=== PATIENT | female | born 1935 | race Caucasian/White ===

== ENCOUNTER 2017-06-21 09:58 | Inpatient (IN) ==
--- NOTE | 2017-06-21 10:17 | PROVIDER DOCUMENTATION ---
HPI-General Adult - General Stated Complaint: RECTAL BLEEDING Time Seen by Provider: 06/21/17 10:00 Source: EMS Allergies/Adverse Reactions: Patient Allergies Allergy/AdvReac Type Severity Reaction Status Date / Time No Known Allergies Allergy Verified 06/21/17 10:24 - History of Present Illness -Gen Adult Nature of Presenting Problems: 81 y/o WF with a PMHx of HTN, CVA, Dementia currently at [facility], depression, and hemorrhoids, presenting today for generalized weakness, decreased appetitie and bleeding hemorrhoids. Was just seen by the PCP for bleeding hemorrhoids. Patient is a poor historian, and just states "I am weak all over." She does not contribute anything else to the history, which is obtained per EMS. Denies recent falls or AMS. She was sent here because she refused to eat breakfast this morning. She is apparently ambulatory with assistance, and is on the behavioral shaw at the facility for depression and dementia. She denies nausea, vomiting, or changes in her BM. Review of Systems - Adult - REVIEW OF SYSTEMS - ADULT Constitutional: reports: see HPIyokasta. denies: chills, fever Eyes: reports: no symptoms reported. denies: decreased vision, blurred vision, double vision, eye pain Ears, Nose, Mouth & Throat: reports: no symptoms reported. denies: ear pain, nose pain, throat pain Cardiovascular: reports: no symptoms reported. denies: chest pain, irregular heart rate, palpitations Respiratory: reports: no symptoms reported. denies: cough, shortness of breath , wheezing Gastrointestinal: reports: see HPI, poor appetite, rectal bleeding. denies: abdominal pain, diarrhea, nausea, vomiting Genitourinary: reports: no symptoms reported. denies: dysuria, discharge, frequency, incontinence Musculoskeletal: reports: no symptoms reported. denies: bone pain, back pain, muscle aches Integumentary: reports: no symptoms reported. denies: rash Neurological: reports: no symptoms reported. denies: dizziness/vertigo, headache/migraines Psychiatric: reports: no symptoms reported Endocrine: reports: no symptoms reported Hematologic/Lymphatic: reports: no symptoms reported Allergic/Immunologic: reports: no symptoms reported All Other Systems: Reviewed and Negative Past History - Adult - PAST MEDICAL HISTORY-ADULT Review of Records: reports: Old Records Reviewed, Nursing Assessment Review, Medications Reviewed Major Childhood Illnesses: reports: denies history Cardiovascular: reports: HTN Respiratory: reports: denies history Gastrointestinal: reports: denies history Obstetrical/Gynecological: reports: denies history Genitourinary: reports: denies history Musculoskeletal: reports: denies history Neurological: reports: CVA (no residual) Psychiatric: reports: anxiety Endocrine/Immune: reports: denies history Other Conditions: reports: denies history - PRIOR SURGERIES/PROCEDURES Surgical/Procedure History: reports: reviewed, not pertinent - IMMUNIZATION STATUS Childhood Immunizations: See Nurse Assessment Flu Vaccine: See Nurse Assessment - FAMILY HISTORY Family History: reviewed, not pertinent - SOCIAL HISTORY Smoking: denies Substance Use: none/never Alcohol Use Frequency: never Living Situation: family Physical Exam-General - PHYSICAL EXAM-ADULT Initial Vital Signs Reviewed: Yes - CONSTITUTIONAL General Appearance: appears well, alert, thin - EYES Eyes: PERRL/EOMI, pink conjunctivae - HEAD, EARS, NOSE, MOUTH & THROAT HENMT: normocephalic/atraumatic, moist mucous membranes, normal ENT inspection - NECK Neck: non-tender, full range of motion, supple, normal inspection - RESPIRATORY Respiratory: chest non-tender, lungs clear, normal breath sounds, no pleuratic chest pain, no respiratory distress, no accessory muscle use. negative: respiratory distress, decreased breath sounds, accessory muscle use, crackles, rales, rhonchi, wheezing - CARDIOVASCULAR Cardiovascular: normal peripheral pulses, regular rate, rhythm, no edema, no gallop, diastolic murmur - GASTROINTESTINAL (ABDOMEN) Abdominal Exam: normal bowel sounds, non tender, soft - LYMPHATIC Lymphatic: no adenopathy - MUSCULOSKELETAL Back Exam: normal inspection Extremity: normal range of motion, normal inspection Peripheral Pulses: radial (R): 2+, radial (L): 2+, dorsalis-pedis (R): 2+, dorsalis-pedis (L): 2+ - SKIN Integumentary: normal color, normal turgor, warm/dry - NEUROLOGIC Neurologic: grossly normal, no motor/sensory deficits - PSYCHIATRIC Psych/Mental Status: normal mood/affect, normal thought content, normal thought process Progress - PLAN OF CARE/RESULTS Progress/Plan/Lab Results: Vital Signs - 8 hr 06/21/17 10:11 Temperature 98.0 F Pulse Rate 74 Respiratory Rate 14 Blood Pressure 135/71 O2 Sat by Pulse Oximetry 98 Orders Category Date Time Status Nursing- Obtain EKG once Care 06/21/17 10:11 Ordered Saline Loc NOW Care 06/21/17 10:11 Ordered CBC WITH ELECTRONIC DIFF [HEME] Stat Lab 06/21/17 10:11 Uncollected CK PROFILE [SP CHEM] Stat Lab 06/21/17 10:11 Uncollected COMPREHENSIVE METABOLIC PANEL [CHEM] Stat Lab 06/21/17 10:11 Uncollected TROPONIN T Stat Lab 06/21/17 10:11 Uncollected UA [UA NIMS W/REFLEX CULT] [URINALYSIS] Stat Lab 06/21/17 10:11 Uncollected EKG [EKG] Stat Ther 06/21/17 10:11 Or[address] Discuss[address] patient with Dr. Yates, agrees with treatment, disposition and plan. Laboratory Tests 06/21/17 06/21/17 06/21/17 10:20 10:20 10:20 WBC 11.78 H RBC 3.69 L Hgb 9.3 L Hct 29.6 L MCV 80.2 L MCH 25.2 L MCHC 31.4 L RDW Std Deviation 13.5 Plt Count 362 MPV 8.5 Immature Gran % (Auto) 0.3 Neut % (Auto) 80.3 H Lymph % (Auto) 8.8 L Falls % (Auto) 9.8 H Eos % (Auto) 0.5 Baso % (Auto) 0.3 Immature Gran # (Auto) 0.03 Neut # (Auto) 9.47 H Lymph # (Auto) 1.04 L Falls # (Auto) 1.15 H Eos # (Auto) 0.06 Baso # (Auto) 0.03 Sodium 137 Potassium 4.0 Chloride 96 L Carbon Dioxide 28 Anion Gap 13 BUN 35 H Creatinine 1.0 H BUN/Creatinine Ratio 35 Glucose 130 H Calculated Osmolality 284 Calcium 8.9 Iron TIBC % Saturation Unsat Iron Binding Ferritin Total Bilirubin 0.14 L AST 12 ALT < 5 L Alkaline Phosphatase 104 Creatine Kinase 52 Troponin T < 0.010 Total Protein 6.5 Albumin 3.3 L Globulin 3.2 Albumin/Globulin Ratio 1.0 Vitamin B12 Folate Urine Source Urine Color Urine Turbidity Urine pH Ur Specific [place] Urine Protein Ur Glucose (Stick) Ur Ketones (Stick) Urine Blood Urine Nitrite Urine Bilirubin Urobilinogen Dipstick Urine Leukocytes Urine WBC (Auto) Urine RBC (Auto) U Epithel Cells (Auto) Urine Bacteria (Auto) 06/21/17 06/21/17 06/21/17 10:20 10:20 10:20 WBC RBC Hgb Hct MCV MCH MCHC RDW Std Deviation Plt Count MPV Immature Gran % (Auto) Neut % (Auto) Lymph % (Auto) Falls % (Auto) Eos % (Auto) Baso % (Auto) Immature Gran # (Auto) Neut # (Auto) Lymph # (Auto) Falls # (Auto) Eos # (Auto) Baso # (Auto) Sodium Potassium Chloride Carbon Dioxide Anion Gap BUN Creatinine BUN/Creatinine Ratio Glucose Calculated Osmolality Calcium Iron 16 L TIBC 223 % Saturation 7 Unsat Iron Binding 207 Ferritin 90 Total Bilirubin AST ALT Alkaline Phosphatase Creatine Kinase Troponin T Total Protein Albumin Globulin Albumin/Globulin Ratio Vitamin B12 1090 H Folate 5.3 L Urine Source Urine Color Urine Turbidity Urine pH Ur Specific [place] Urine Protein Ur Glucose (Stick) Ur Ketones (Stick) Urine Blood Urine Nitrite Urine Bilirubin Urobilinogen Dipstick Urine Leukocytes Urine WBC (Auto) Urine RBC (Auto) U Epithel Cells (Auto) Urine Bacteria (Auto) 06/21/17 10:29 WBC RBC Hgb Hct MCV MCH MCHC RDW Std Deviation Plt Count MPV Immature Gran % (Auto) Neut % (Auto) Lymph % (Auto) Falls % (Auto) Eos % (Auto) Baso % (Auto) Immature Gran # (Auto) Neut # (Auto) Lymph # (Auto) Falls # (Auto) Eos # (Auto) Baso # (Auto) Sodium Potassium Chloride Carbon Dioxide Anion Gap BUN Creatinine BUN/Creatinine Ratio Glucose Calculated Osmolality Calcium Iron TIBC % Saturation Unsat Iron Binding Ferritin Total Bilirubin AST ALT Alkaline Phosphatase Creatine Kinase Troponin T Total Protein Albumin Globulin Albumin/Globulin Ratio Vitamin B12 Folate Urine Source CATH Urine Color YELLOW Urine Turbidity HAZY Urine pH 6.5 Ur Specific [place] 1.024 Urine Protein 50 A Ur Glucose (Stick) NEGATIVE Ur Ketones (Stick) TRACE A Urine Blood NEGATIVE Urine Nitrite POSITIVE A Urine Bilirubin NEGATIVE Urobilinogen Dipstick NORMAL Urine Leukocytes MODERATE A Urine WBC (Auto) 10-20 A Urine RBC (Auto) <10 U Epithel Cells (Auto) <10 Urine Bacteria (Auto) 4+ Result Diagrams: 06/21/17 10:20 06/21/17 10:20 - CONSULTS/PCP/HOSPITALIST Notification #1 *Consult/PCP/Hospitalist*: Hospitalist, Dr. Summers Time Discussed: 11:42 Reason/Comments: UTI, weakness Consult Disposition: Admit Departure - Departure Date of Disposition Decision: 06/21/17 Time of Disposition Decision: 11:40 DIAGNOSIS: Weakness UTI (urinary tract infection) Qualifiers: Urinary tract infection type: acute cystitis Hematuria presence: without hematuria Qualified Code(s): N30.00 - Acute cystitis without hematuria Anemia Qualifiers: Anemia type: unspecified type Qualified Code(s): D64.9 - Anemia, unspecified Disposition: ADMITTED INPATIENT 09 Certified Medical Emergency: Emergent Condition: Stable - Critical Care Note This patient required my direct & personal management of CC.: No Attestation - Physician/ CANDI Attestation Patient care was provided by Advanced Practice Provider:: Yes Advanced Practice Provider:: Araceli Johnson Advanced Practice Provider documentation review:: The Mid-level provider documentation, treatment plan and medical decision making was reviewed by the physician who agrees with all treatment and medical decision making by the MLP. The physician spent face to face time with patient:: No Advanced Practice Provider documentation review:: Supervising physician onsite and consulted in the evaluation and care of this patient. The physician did not have a face to face encounter with the patient.
[2017-06-21 10:26] LABS: MANUAL DIFF NEEDED? NO
[2017-06-21 10:29] LABS: BASO% 0.3 % (0.0-0.8); EOS# 0.06 X1000 (0.0-0.7); EOS% 0.5 % (0.0-10.0); HEMATOCRIT 29.6 % (37.0-47.0); HEMOGLOBIN 9.3 g/dL (12.0-16.0); IMM GRAN# 0.03 X1000 (0.0-0.04); IMM GRAN% 0.3 % (0.0-0.5); LYMPH# 1.04 X1000 (1.2-3.4); LYMPH% 8.8 % (20.5-51.1); MCH 25.2 PG (27-31); MCHC 31.4 g/dL (33-37); MCV 80.2 FL (81-99); MONO# 1.15 X1000 (0.11-0.59); MONO% 9.8 % (1.7-9.3); MPV 8.5 FL (7.4-10.4); NEUT% 80.3 % (42.2-75.2); PLT 362 X1000 (130-400); RBC 3.69 XMIL (4.2-5.4)
[2017-06-21 10:52] LABS: AGAP 13; ALBUMIN 3.3 g/dL (3.5-5.0); ALKALINE PHOSPHATASE 104 U/L (32-104); BUN 35 mg/dL (8-22); CALCIUM 8.9 mg/dL (8.8-10.2); CHLORIDE 96 mmol/L (98-107); CK PROFILE 52 U/L (24-173); COSMO 284; GOT 12 U/L (10-30); GPT < 5 U/L (10-36); SODIUM 137 mmol/L (136-145); TCO2 28 mmol/L (25-35); TOTAL BILIRUBIN 0.14 mg/dL (0.20-1.00); TOTAL PROTEIN 6.5 g/dL (6.3-8.3)
[2017-06-21 10:55] LABS: URINE MICRO REVIEW NEEDED? NO; URINE SOURCE CATH
[2017-06-21 10:59] LABS: BILIRUBIN URINE NEGATIVE (NEGATIVE); BLOOD URINE NEGATIVE (NEGATIVE); COLOR YELLOW; GLUCOSE URINE NEGATIVE (NEGATIVE); LEUKOCYTES URINE MODERATE (NEGATIVE); NITRITE URINE POSITIVE (NEGATIVE); PH URINE 6.5; PROTEIN URINE 50 mg/dL (NEGATIVE); SP GRAVITY URINE 1.024; TURBIDITY URINE HAZY (CLEAR); UR EPITHELIAL CELLS <10 /HPF (<10); URINE BACTERIA 4+ /HPF; URINE CULTURE NEEDED? YES; URINE RBC <10 /HPF (<10); UROBILINOGEN URINE NORMAL (NORMAL)
[2017-06-21] MEDS ORDERED: ROCEPHIN 1 GM/NS 1 GM/50 ML IVPB IV ONE (11:33)
[2017-06-21 12:20] LABS: IRON SATURATION 7 %; TIBC 223 ug/dL; TOTAL IRON 16 ug/dL (49-151); UNBOUND IRON 207 ug/dL (112-346)
[2017-06-21 13:07] LABS: FERRITIN 90 ng/mL (13-150)
--- NOTE | 2017-06-21 13:36 | Diag Imaging Result Doc PS360 ---
EXAM: CHEST-PORTABLE INDICATION: r/o pna TECHNIQUE: One view COMPARISON: None. FINDINGS: The lungs are grossly clear. There is no discrete pleural fluid collection or pneumothorax. There appear to be calcified hilar lymph nodes indicating prior granulomatous disease. The cardiac silhouette is borderline prominent. IMPRESSION: Borderline cardiomegaly but no definite acute pathology. Electronically signed by Lakhwinder Gaitan 06/21/2017 1:34 PM
--- NOTE | 2017-06-21 15:12 | ED EKG INTERP ---
This chart was entered by Gely Fowler Scribe, acting as scribe for Fawad Yates MD. EKG Interpretation - EKG Time of EKG reading by physician:: 10:34 EKG Read and Signed by:: Fawad Yates EKG Interpretation (*Must complete 3 of following elements*): Normal Rate: 57 (low voltage QRS w) Rhythm: sinus bradycardia Attestation - Physician/ CANDI Attestation Patient care was provided by Advanced Practice Provider:: No The physician spent face to face time with patient:: Yes Advanced Practice Provider documentation review:: Supervising physician onsite and consulted in the evaluation and care of this patient. The physician did have a face to face encounter with the patient. This chart was documented by the indicated scribe, (Gely Fowler Scribe) and accurately reflects the services I performed and decisions made by meMilan Wenli X, MD, as attested by the provider's signature.
[2017-06-21] MEDS ORDERED: TYLENOL PO PRN (16:34)
[2017-06-21] MEDS ORDERED: NS 1,000 ML IV SCH (16:34)
[2017-06-21] MEDS ORDERED: ZOFRAN IV PRN (16:34)
--- NOTE | 2017-06-21 16:38 | HISTORY AND PHYSICAL ---
CHIEF COMPLAINT: Refusing to eat, not ambulating. HISTORY OF PRESENT ILLNESS: Ms Rhonda Perry is an 81-year-old, female, with a medical history of Alzheimer's dementia, major depressive disorder, insomnia and hypertension, who was brought here from [facility] due to the patient refusing to eat and not ambulating. Workup revealed a white blood cell count 11,000. She is afebrile, but she did have a urinary tract infection, per her urinalysis. Rocephin 1 g has been given. When questioning the patient, she did state that she did have some bladder pain, but that is all she complained about. Otherwise, she had no other complaints. She is very difficult to obtain information from. We will admit to the medical floor, give her IV antibiotic therapy and, hopefully, transfer back to [facility]. PAST MEDICAL HISTORY: Alzheimer's dementia, major depressive disorder, insomnia, hypertension, hemorrhoids, enlarged heart. SURGICAL HISTORY: Hysterectomy, section. SOCIAL HISTORY: Resident at [facility]. Unable to obtain information on tobacco, alcohol, or illicit drug use. She has 4 children. Apparently 2 were killed in 2 separate wrecks in their college years. FAMILY HISTORY: Noncontributory. REVIEW OF SYSTEMS: Only complained of bladder pain from time to time. No other complaints, but it was difficult to obtain a detailed review of systems. ALLERGIES: No known drug allergies. HOME MEDICATIONS: Has not been updated. PHYSICAL EXAMINATION: VITAL SIGNS: Temperature 98.0 degrees, heart rate 80, respiratory rate 18, blood pressure 156/72, O2 saturation 98% on room air. She is 5 feet 6 inches tall, 150 pounds, BMI 24.2. GENERAL: Ms. Rhonda Perry is an 81-year-old, female. She is in no acute distress, but has a very flat affect. Answers some questions, but not all. HEENT: Atraumatic, normocephalic. Pupils equal, round, reactive to light. Extraocular movements intact. Mucous membranes are dry. NECK: No JVD or carotid bruits noted. CARDIOVASCULAR: S1, S2. Regular rate and rhythm. No rubs, gallops, murmurs. PULMONARY: Clear to auscultation. Bilateral breath sounds. No accessory muscle use or work of breathing noted. GASTROINTESTINAL: Soft, nontender, nondistended. Positive bowel sounds x4. EXTREMITIES: No edema noted. There are +2 dorsalis and radial pulses. NEUROLOGIC: Oriented to name only. Followed some simple commands. SKIN: Warm, dry, intact. LABORATORY DATA: White blood cells 11,000, hemoglobin 9.3, hematocrit 29.6, platelet count 362,000. Potassium 4.0, BUN 35, creatinine is 1.0, glucose 130. Iron 16. Total bilirubin 0.14, AST 12, ALT less than 5. CK 52, troponin less than 0.01. Albumin 3.3. Vitamin B12 is 1090, folate 5.3. Urinalysis with 15 protein, trace ketones, positive nitrites, moderate leukocytes, 10- 20 white blood cells, and 4+ bacteria. IMAGING: Chest x-ray: Report not available. ASSESSMENT AND PLAN: 1. Urinary tract infection. We will continue with Rocephin 1 g IV q.24 hours. 2. Infectious encephalopathy, secondary to urinary tract infection. We will continue to monitor. 3. Alzheimer's dementia. Once home medications are verified, we will continue. 4. Hypertension, currently stable. 5. Dehydration. We will continue with IV fluid hydration. 6. Deep venous thrombosis prophylaxis with sequential compression devices. 7. Iron-deficiency anemia and folate deficiency. We will supplement with iron and folic acid. Dictated by PUNEET Platt for Ren Monet MD cc: PUNEET Platt MD
[2017-06-21] MEDS ORDERED: SODIUM CHLORIDE 0.9% INJ SCH (17:30)
--- NOTE | 2017-06-21 18:32 | Diag Imaging Result Doc PS360 ---
EXAM: CT PELVIS WITH IV CONTRAST ONL INDICATION: rectovesical fistula TECHNIQUE: COMPARISON: None. FINDINGS: Contrast is seen normally filling the bladder. There is no abnormal contrast extravasation and no evidence of rectovesicular fistula. There is extensive sigmoid diverticulosis coli but there is no evidence of diverticulitis. The appendix is identified and appears normal. There has been a previous hysterectomy. There are a few mildly prominent pelvic lymph nodes low in the pelvis. For reference, there is a lymph node posterior to the rectum on the left on image 45 of series 3 that measures up to 1.6 x 1.3 cm axially. There is more significant bilateral inguinal lymphadenopathy. These inguinal lymph nodes are low in density centrally suggesting possible central necrosis. For reference, one of the larger lymph nodes in the right inguinal region can be seen on image 65 of series 4 and measures up to 2.9 x 1.9 cm axially. There is a reported perianal skin lesion on the right. There is indeed vague skin thickening in the right perianal region as well as the right labia majora. There is a small nodule in the subcutaneous fat at the base of the right labia majora measuring up to 1.5 cm axially. IMPRESSION: 1.No evidence of rectovesicular fistula. 2.Prominent bilateral inguinal lymphadenopathy and smaller mildly prominent pelvic lymph nodes as described. 3.Vague thickening of the soft tissues in the perianal region on the right and near the base of the right labia majora. Please see above discussion. 4.Other incidental/nonacute findings detailed above. Electronically signed by Lakhwinder Gaitan 06/21/2017 6:30 PM
[2017-06-21] MEDS: ZOSYN 3.375 GM in NS 50 ML IV SCH ×2 (18:36→23:45)
[2017-06-21] MEDS: PROTONIX IV SCH (18:36)
--- NOTE | 2017-06-21 19:21 | CONSULTATION ---
DATE OF CONSULTATION: 06/21/2017 REQUESTING PHYSICIAN: Hospitalist service. REASON FOR CONSULTATION: Concerning possible colovaginal fistula. HISTORY OF PRESENT ILLNESS: An 81-year-old female with a history of Alzheimer's dementia, major depressive disorder, insomnia, hypertension, who resides at [facility] who came in refusing to eat and not ambulating. At that time, she was worked up and admitted to the hospitalist service. During an evaluation, nurse tried to place Schneider catheter, found a skin lesion and thought it looked concerning. They also noted what sounded like stool coming out of either her urethra or vaginal orifice. I was consulted. The patient was sent down for CT scan which is currently underway, but not completed, but I do not see any air in the bladder at this time. I suspect that she might have a colovaginal fistula which might be related to a neoplasm in her perineum. PAST MEDICAL HISTORY: Alzheimer's dementia, major depressive disorder, insomnia, hypertension, hemorrhoids, enlarged heart. PAST SURGICAL HISTORY: Hysterectomy, previous section. SOCIAL HISTORY: Lives in a fdc. FAMILY HISTORY: Reviewed with patient, but difficult to obtain secondary to mental status, but noncontributory in other dictations. ALLERGIES: None known. HOME MEDICATIONS: Reviewed MAR. REVIEW OF SYSTEMS: Difficult to obtain secondary to patient's mental status. No family members at the bedside. PHYSICAL EXAMINATION: Vital Signs: Patient is currently afebrile. Her vital signs are stable. General: No acute distress, but nonverbal. HEENT: Normocephalic, atraumatic. Pupils equal, round, react to light. Mucous membranes moist. Oropharynx benign. Neck: Supple. Trachea midline. Cardiovascular: Regular rate and rhythm. Lungs: Grossly clear. Abdomen: Soft, nontender, nondistended. The perineum with a lesion located near the anus that extends down to the labia concerning for cancer. I did not see any active drainage of stool from the urethra, but there is some soilage around the area. Extremities: Moves all extremities. Neurologic: Difficult to obtain, but she does seem to follow simple commands. Skin: No signs of jaundice, but lesion as noted above in the perineum. LABORATORY/IMAGING: White blood cell count 11, hematocrit 29, platelet count 362,000. Remainder of laboratory reviewed. CT scan again currently underway. 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 1. Multiple medical comorbidities and failure to thrive. To be managed by the hospitalist service. 2. Colovaginal fistula. At this time there is concern this might be related to a neoplasm either originating from the anus or the vagina. I will discuss further with family about the extent workup. I suspect that we could obtain a biopsy to get a diagnosis, but suspect the patient would probably not able tolerate the surgery required to cure this. We will discuss further with family about on goals and expectations. I appreciate the consult. cc: Umberto Perez MD
--- NOTE | 2017-06-21 19:30 | CONSULTATION ---
DATE OF CONSULTATION: 06/21/2017 REFERRING PHYSICIAN: Ren Monet MD REASON FOR CONSULTATION: Question of rectovaginal fistula. HISTORY OF PRESENT ILLNESS: Ms. Perry is an 81-year-old female who is admitted to the hospital for symptoms of refusing to eat and lower abdominal pain. She was brought from [facility]. On admission, she had lab work done which showed evidence of white count of 11,000. She was noted to have a urinary tract infection per urinalysis. She was given for Rocephin. She complains of lower abdominal pain and suprapubic pain, which is going off and on for a few weeks. She went to the floor and there they tried to put a Schneider in and when the Schneider was inserted it had feculent drainage. The question was raised about a rectovaginal fistula. The patient had a CT scan done of the pelvis today, results are currently pending, but it has a questionable fistula connecting the rectum to the vaginal area. There was no air noted in the bladder. We will await the final results of the radiologist. The patient was also noted to have a lesion starting at the anal area and including entire perineum all the way to the vulva. The patient complains of some soreness there, but no major discomfort. PAST MEDICAL HISTORY: 1. Alzheimer's dementia. 2. Major depressive disorder. 3. Insomnia. 4. Hypertension. 5. Hemorrhoids. 6. Enlarged heart. 7. Urinary tract infection. Recurrent. SURGICAL HISTORY: 1. She has hysterectomy. 2. section. SOCIAL HISTORY: She lives in [facility]. She has 4 children. She has no history of tobacco, alcohol or illicit drugs per the records. FAMILY HISTORY: Noncontributory. REVIEW OF SYSTEMS: Only some review of systems could be obtained as the patient has dementia. The patient denies any vomiting blood or passing blood in the stools. She complains of abdominal pain in the suprapubic region and some discomfort in the anal and pelvic area. She denies having any colonoscopy in the past. ALLERGIES: No known drug allergies. HOME MEDICATIONS: Being compiled. MEDICATIONS IN THE HOSPITAL: Tylenol. Bisacodyl. Folic acid. Iron C b.i.d. Zofran. Protonix. Zosyn. She is currently on full liquid diet. PHYSICAL EXAMINATION: Vital signs: Temperature of 98, pulse rate of 80, respiratory rate 18, blood pressure 150/72, saturating 98% on room air. Body weight 150 pounds. BMI 22.8. General: Moderately built, moderately nourished, lying in bed, in no acute distress. HEENT: Pale conjunctivae. No icterus. Pupils equal, react to light. Neck: The neck is supple. Chest: Clear. Cardiac: Regular rhythm. No murmur. Abdomen: Soft, nontender, nondistended. Bowel sounds present. Suprapubic discomfort noted secondary to likely urinary tract infection. Bowel sounds heard. No guarding. Extremities: No cyanosis or clubbing. Neurological: She is awake and answers questions. Perineal: Examination showed evidence of a skin lesion starting at the anus encroaching all the way to vulva and including entire perineum. Need to exclude malignancy versus infectious etiology. LABORATORY AND IMAGING: Hemoglobin and hematocrit is 9.2 and 29.6, white count 11.7, platelet count of 360,000, MCV of 80.2. Sodium 137, potassium 4, chloride 96, bicarb 20 , anion gap 13, BUN of 35, creatinine 1, glucose of 130. Calcium is 8.9. Iron of 16%, ferritin 90 , AST 12, ALT less than 5. Alkaline phosphatase 104, total protein 6.2, albumin of 3.3, B12 1090, folate of 5.3, urinalysis positive for protein, trace ketones, positive nitrate , positive leukocytes. Blood cultures have been taken and stool occult blood was positive. Urine culture is currently pending. CT of the pelvis was done, final results are currently pending. IMPRESSION AND PLAN: 1. Feculent drainage in the Schneider catheter suspicious for rectovaginal fistula. 2. Anemia - iron deficiency 3. Positive Hemoccult. 4. Lesion at the anal area extending all the way to the perineal and vulva. Need to exclude malignancy versus infectious etiology. 5. Dementia. RECOMMENDATIONS: 1. We will keep the patient on full liquid diet. We will start her on PPIs once every 12 hours. 2. We will keep her on antibiotics for urinary tract infection and will follow the final results of the pelvic computed tomography scan. 3. We will keep her on Iron C b.i.d. 4. We will keep her on full liquid diet and start her on IV fluids. 5. We will give her a dose of Dulcolax suppository to help treat constipation. 6. Based on the results of the computed tomography scan, we will decide if the patient is able, we can do a flexible sigmoidoscopy. We may also pursue a perineal biopsy to evaluate for the possible pathology of external perineal lesion. I discussed plan with the patient's nurse and Dr. Perez. cc: MD Umberto Zaldivar MD Omar J. Sosa-Chirinos, MD MTDD
[2017-06-21] MEDS ORDERED: PRILOSEC PO SCH (21:00)
[2017-06-21] MEDS ORDERED: DULCOLAX PR SCH (21:00)
[2017-06-21] MEDS: ICAR-C PO SCH (23:45)
[2017-06-22] MEDS: ZOSYN 3.375 GM in NS 50 ML IV SCH ×2 (06:08→09:40)
[2017-06-22] MEDS: PROTONIX IV SCH (06:08)
--- NOTE | 2017-06-22 06:23 | HISTORY AND PHYSICAL ---
ADDENDUM: ASSESSMENT AND PLAN: Secondary to further findings on evaluation. 1. The patient has anal lesions and a right inguinal lesion that appear to be malignant in nature. General surgery has been consulted. Gastroenterology has been consulted. 2. Rectovesical fistula. Schneider catheter placement with obvious stool draining from the Schneider catheter. Again, general surgery has been consulted. Antibiotic therapy has been changed to Zosyn and patient has been made a DNR level 1. I personally performed a face to face evaluation on this patient, also I review laboratory work and images, she has a suspicious lesion on her anal area , suspicious for malignancy, I do not think she is a good candidate for treatment, I had a large conversation with the family, they decided to put this patient DNR, Surgery and GI will be on board, I agree with the assessment and treatment, Ren Virk MD. Dictated by PUNEET Platt for Ren Monet MD cc: PUNEET Platt MD MTD
[2017-06-22 06:55] LABS: MANUAL DIFF NEEDED? NO
--- NOTE | 2017-06-22 06:57 | PROGRESS NOTE ---
DATE: 06/22/2017 SUBJECTIVE: No major issues. A CT scan done yesterday was reviewed. No signs of rectal vesicular fistula. There is lymphadenopathy noted in bilateral inguinal regions on the CT scan. Difficult to see if there is actually a colovaginal fistula. OBJECTIVE: Vital Signs: Patient is currently afebrile. Her vital signs have been stable. General: Resting. Cardiovascular: Regular rate and rhythm. Lungs: Grossly clear. Abdomen: Soft, nontender, nondistended. Rectal Exam: Essentially unchanged with lesion noted. ASSESSMENT/PLAN: An 81-year-old female with likely anal cancer with significant bilateral inguinal lymphadenopathy causing a rectovaginal fistula Rectovaginal fistula: At this time given the underlying etiology, I suspect this is a cancer, especially given her lymphadenopathy. We will need to discuss with family if they want to have a biopsy to prove the diagnosis. Doubt the patient would tolerate any aggressive treatment but will need to discuss with the family. Otherwise continue current treatment. cc: Umberto Perez MD
--- NOTE | 2017-06-22 07:03 | EKG Report ---
Test Performed on : 06/21/2017 10:34:09 AM Test Reason : AMS Blood Pressure : / mmHG Vent. Rate : 057 BPM Atrial Rate : 057 BPM P-R Int : 186 ms QRS Dur : 076 ms QT Int : 422 ms P-R-T Axes : 021 031 021 degrees QTc Int : 410 ms Sinus bradycardia. Low voltage QRS Borderline ECG No previous ECGs available Unconfirmed Result
[2017-06-22 07:11] LABS: INR 1.02; PROTIME 10.7 Seconds (9.2-11.7); PTT 30.9 Seconds (22.0-36.0)
[2017-06-22 07:21] LABS: BASO% 0.5 % (0.0-0.8); EOS# 0.13 X1000 (0.0-0.7); EOS% 1.6 % (0.0-10.0); HEMOGLOBIN 7.9 g/dL (12.0-16.0); LYMPH# 1.67 X1000 (1.2-3.4); LYMPH% 20.9 % (20.5-51.1); MCH 24.8 PG (27-31); MCHC 30.4 g/dL (33-37); MCV 81.5 FL (81-99); MONO# 0.64 X1000 (0.11-0.59); MPV 8.3 FL (7.4-10.4); PLT 350 X1000 (130-400); RBC 3.19 XMIL (4.2-5.4)
[2017-06-22 07:30] LABS: AGAP 12; ALBUMIN 2.8 g/dL (3.5-5.0); ALKALINE PHOSPHATASE 89 U/L (32-104); BUN 27 mg/dL (8-22); CALCIUM 8.8 mg/dL (8.8-10.2); CHLORIDE 99 mmol/L (98-107); COSMO 280; GOT 11 U/L (10-30); GPT < 5 U/L (10-36); POTASSIUM 4.2 mmol/L (3.5-5.1); SODIUM 138 mmol/L (136-145); TCO2 27 mmol/L (25-35); TOTAL BILIRUBIN 0.19 mg/dL (0.20-1.00); TOTAL PROTEIN 5.7 g/dL (6.3-8.3)
[2017-06-22] MEDS ORDERED: FOLIC ACID PO SCH (09:00)
[2017-06-22] MEDS: ICAR-C PO SCH (09:40)
[2017-06-22] MEDS ORDERED: ROCEPHIN 1 GM/NS 1 GM/50 ML IVPB IV SCH (12:00)
--- NOTE | 2017-06-22 12:24 | PROGRESS NOTE ---
DATE: 06/22/2017 SUBJECTIVE: The patient is resting in bed. She has dementia. She was not able to answer any questions this morning. No fevers reported per the nursing staff. No nausea or vomiting reported per the records. The patient was admitted yesterday for a urinary tract infection and positive possible rectovaginal fistula. She has a perineal lesion which is concerning for malignancy versus infection in etiology. OBJECTIVE: Vital Signs: Temperature 98.2, pulse of 84, respiratory rate 18, blood pressure of 117/43, saturating 98% on room air. General appearance: Thinly built, lying in bed, in no acute distress. HEENT: Pale conjunctiva. No icterus. Neck: Supple. Abdomen: Soft. No guarding. Extremities: No cyanosis or clubbing. Neurologic: She has dementia. LABS: Her hemoglobin and hematocrit is 7.9 and 26. White count of 8, platelet count of 350,000. MCV of 81.5. INR 1.02. PT of 10.7, PTT of 30.9. Sodium of 130, potassium 4.2 , chloride 99, bicarb 27, anion gap 12. BUN of 27, creatinine 0.9, glucose of 85. Calcium is 8.8, magnesium 2.0, total bilirubin is 0.19. AST 11, ALT less than 5. Total alkaline phosphatase 89, total protein 5, albumin of 2.8, TSH 1.77. IMPRESSION AND PLAN: 1. Perineal lesion extending from the anus to the vulva with bilateral inguinal adenopathy and possible rectovaginal fistula causing feculent drainage/urination. We will schedule patient for a flexible sigmoidoscopy/colonoscopy tomorrow. We will give her MiraLAX and a dose of magnesium citrate today. We may give her tap water enema in the morning if she is not clear. 2. Gastrointestinal prophylaxis with PPIs. 3. Anemia. We are going to watch and type and cross. Transfuse to keep hematocrit above 25% and continue on iron b.i.d. 4. Urinary tract infection. She is on antibiotics per the primary team. 5. Further recommendations to follow pending the hospital course. Discussed with Dr Perez. cc: Boo Smith MD [facility] PS[facility]ATRIC CENTERMirlande
[2017-06-22] MEDS ORDERED: GOLYTELY PO ONE (14:00)
[2017-06-22] MEDS ORDERED: NS 1,000 ML IV SCH (15:59)
[2017-06-22] MEDS ORDERED: VANCOMYCIN IV PER PHARMACY MISC SCH (16:15)
[2017-06-22] MEDS ORDERED: ATIVAN IV PRN (16:19)
[2017-06-22] MEDS: MORPHINE IV PRN (16:40)
[2017-06-22] MEDS ORDERED: VANCOMYCIN 1,700 MG in NS 250 ML IV ONE (17:30)
--- NOTE | 2017-06-22 17:56 | PROGRESS NOTE ---
DATE: 06/22/2017 SUBJECTIVE: The patient is resting comfortably in bed. She has no complaints. OBJECTIVE: Vital Signs: Temperature 98.6 degrees, blood pressure 125/49, heart rate 96, respirations 20, O2 saturations 100% on room air. General: This is a chronically ill-appearing, elderly female, lying in bed, in no acute distress. HEENT: Head normocephalic, atraumatic. Heart: S1, S2. Normal. Regular rate and rhythm. Lungs: Clear to auscultation bilaterally. No crackles. No rales. Abdomen: Positive bowel sounds. Soft, nontender, nondistended. Extremities: No edema. No cyanosis. Neurologic: The patient is awake and alert. LABORATORY: White blood cell count 8. Hemoglobin 7.9, hematocrit 26, platelets 350,000. INR 1. Sodium 138, potassium 4.2, chloride 99, CO2 27, BUN 27, creatinine 0.9, glucose 85, AST 11. 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 The patient's daughter has discussed the patient's findings with Dr. Perez and Dr. Smith. After discussion with both of the specialists, the patient's daughter has decided to make the patient a Do Not Resuscitate level 1 with comfort measures only. She is not interested in antibiotics, IV fluids or surgical intervention. We will consult with Pharmacologist to arrange for hospice services to be arranged for the patient once [facility]. We will start the patient on morphine and Ativan as needed for comfort. cc: Claudia Carvajal MD
--- NOTE | 2017-06-23 13:51 | PROGRESS NOTE ---
DATE: 06/23/2017 SUBJECTIVE: No acute events overnight. This patient is still having generalized pain and weakness. She is still having rectal bleed. Family members have decided to transfer this patient to a health facility with comfort measures only and hopefully tomorrow we are going to be able to do that. OBJECTIVE: Vital Signs: Temperature 98.3 degrees, pulse 85, respiratory rate 18, blood pressure 126/43, oxygen saturation 98 on room air. HEENT: Head normocephalic. No trauma. PERRLA. Neck: Supple. No JVD. No masses. Central trachea. Chest: Coarse breath sounds. Abdomen: Soft, mild tenderness to palpation at the level of the suprapubic area. Genital/inguinal area: She has a mass like lesion around the anal area and right side of her inguinal area that is friable and tender. Extremities: No edema. No clubbing. No cyanosis. Neurological: The patient is alert. She is oriented to name only. She follows simple commands. LABORATORY: No lab work done today. ASSESSMENT AND PLAN: 1. Likely anal cancer with significant bilateral inguinal lymphadenopathy causing a rectal vaginal fistula and bilateral inguinal lymphadenopathy. Family members aware that and they have decided to transfer this patient to a health care facility with comfort measures only. Hopefully tomorrow we are going to be able to do it. She is still having some rectal bleed. 2. Urinary tract infection. She was placed on Rocephin but since this patient is on comfort measures only this has been stopped. 3. Infectious encephalopathy. Will monitor. 4. Alzheimer's dementia. Continue with the same management. 5. Hypertension. Stable. 6. Dehydration. Continue with IV fluids. 7. Deep vein thrombosis prophylaxis with SCDs. cc: Ren Monet MD
[2017-06-23] MEDS ORDERED: VANCOMYCIN 1 GM/NS 1 GM/250 ML IVPB IV SCH (18:00)
[2017-06-24] MEDS: MORPHINE IV PRN (10:52)
[2017-06-24 14:15] VITALS: BP 137/55
--- NOTE | 2017-06-24 15:18 | DISCHARGE SUMMARY ---
ADMISSION DATE: 06/21/2017 DISCHARGE DATE: 06/24/2017 CONSULTATIONS: 1. Dr. Umbreto Perez with General Surgery. 2. Dr. Boo Smith with Gastroenterology. PERTINENT PROCEDURES: 1. Pelvis CT showed no evidence of rectovesical fistula, prominent bilateral inguinal lymphadenopathy and smaller mildly prominent pelvic lymph nodes as described. Vague thickening in soft tissues of the perianal region on the right near the base of the right labia majora. 2. Chest x-ray, borderline cardiomegaly but no definite acute pathology. DISCHARGE DIAGNOSES: 1. Rectal cancer with rectovaginal fistula. Patient going back to [facility] on comfort measures. 2. Urinary tract infection. 3. Infectious encephalopathy. 4. Alzheimer's dementia. 5. Hypertension. 6. Dehydration. HOSPITAL COURSE: Ms. Perry is an 81-year-old, female who carries a past medical history of Alzheimer's dementia, major depressive disorder, insomnia, hypertension brought in from [facility] due to the patient refusing to eat and not ambulating. Workup revealed a white count of 11, afebrile. She did have a urinary tract infection. She was started on IV Rocephin as well as IV fluids. Dr. Perez was consulted for possible colovaginal fistula. There was concern this might be related to neoplasm either originating from the anus or the vagina. Dr. Perez discussed further with family about the extent of the workup. He did explain to them they could obtain a biopsy to get a diagnosis but suspects that the patient would probably not tolerate the surgery required to cure this. The patient's daughter has discussed the findings with Dr. Perez as well as Dr. Smith. After discussion with the specialists, the daughter had decided to make the patient DNR level 1 with comfort measures only. She is not interested in IV antibiotics, IV fluids or surgical intervention. Cancellation Clerk is to arrange for hospice services and for the patient to go back to the senior living. She was placed on morphine and Ativan for comfort. VITAL SIGNS AT TIME OF DISCHARGE: Temperature is 98.3 degrees, heart rate 89, respirations 16, blood pressure 139/57, O2 is 98% on room air. FOLLOW UP: Ms. Perry is being discharged back to the senior living on comfort measures per their protocol. 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
== END 2017-06-24 17:48 ==
LOC: SUPCPDRO → ED 09:58 → SUATTDRO 12:27 → 3N 12:27
PROVIDERS: ATTEND Internal Medicine